=== PATIENT | female | born 1970 | race Caucasian/White ===

== ENCOUNTER → 2024-03-22 13:58 | Outpatient (REF) | payer OTHER, SELFPAY | LOC: MRI 3T 13:58 | PROVIDERS: ATTENDING PHYSICIAN Orthopaedic Surgery Hand Surgery; FAMILY PHYSICIAN Student in an Organized Health Care Education/Training Program | DX: M25.532 Pain in left wrist (principal) | CPT/HCPCS: 25246; 73115; 73222 ==

== ENCOUNTER 2024-05-14 06:42 | Day surgery (SDC) | payer OTHER, SELFPAY ==
[2024-04-18 13:03] VITALS: BMI 24.6
[2024-05-14] VITALS (9 sets, daily range): BP systolic 95–107; BP diastolic 58–73; BMI 24.6
[2024-05-14] MEDS: CELEBREX 200 MG PO (07:22)
[2024-05-14] MEDS: TYLENOL 1000 MG PO (07:22)
[2024-05-14] MEDS: NORMOSOL-R 1000 IV (07:22)
--- NOTE | 2024-05-14 11:41 | PTCARENOTE ---
1140 Patient transferred to [facility] with Ameena ALEJANDRO. VSS/afebrile. Phase 2 to continue in SDS
== END 2024-05-14 12:11 | disposition home or self-care (01) ==
LOC: SDS 06:42
PROVIDERS: ATTENDING PHYSICIAN Orthopaedic Surgery Hand Surgery; FAMILY PHYSICIAN Family Medicine
DX: S63.502A Unspecified sprain of left wrist, initial encounter (principal); X58.XXXA Exposure to other specified factors, initial encounter
CPT/HCPCS: 25320; 36415; 93005; C1713

== ENCOUNTER 2024-07-24 09:23 | Emergency (ER) | payer OTHER, SELFPAY ==
[2024-07-24 09:27] VITALS: BP 151/74
--- NOTE | 2024-07-24 10:22 | EDRN ---
Kamille FERRERA in room w/ pt at this time.
--- NOTE | 2024-07-24 10:42 | ED.GENMED ---
History of Present Illness
General
Chief Complaint: Breathing Problem
Source: patient
Exam Limitations: none
Time Seen by Provider: 07/24/24 10:26
History of Present Illness
History of Present Illness:
54-year-old female otherwise healthy presents with right sided sharp chest wall discomfort starting yesterday. She went to open a door and felt sharp pain that brought her to her knees. Since then she has had pain with deep breathing. She denies
cough. She denies fever. Denies leg swelling or calf pain. In May, she had a left wrist surgery. She was less active than normal after the surgery. [place] This is a hour and
40-minute ride one-way. She had the urgent care this morning and was referred here for further evaluation. She had an EKG finding to suggest for PE. She had an chest x-ray at the urgent care which was negative for acute finding. I personally
visualized these images
Past History
Past History
ED Past Medical History: None
ED Past Surgical History: , Gynecological (Tubal ligation) and Other (Breast augmentation)
Social History
Tobacco: Non-smoker
Personal:
Living: with family
Employment: Employed ([employer])
Phy Exam
Physical Exam
Physical Exam:
General: Well-appearing female no respiratory distress
HEENT: Normocephalic atraumatic
Heart: Regular rate and rhythm
Lungs: Breath sounds heard in all narvaez
Abdomen is soft nontender nondistended
Extremities: No cyanosis or edema no calf tenderness
Scores
Heart Failure Risk
Heart Failure Risk Score: Not Applicable
Course
Orders/Labs/Results
Orders:
Orders
07/24/24 09:32
Electrocardiogram (*1) Urgent
Reason for Study: Shortness of Breath
07/24/24 09:33
EKG- Treatment ONCE
07/24/24 10:53
Comprehensive Metabolic Panel Urgent
D-Dimer Urgent
07/24/24 10:55
Complete Blood Count/With Diff Urgent
Troponin I Urgent
Abnormal Lab Results
07/24/24
10:53
BUN 21 H mg/dl
(7-17)
07/24/24 10:55
07/24/24 10:53
Vital Signs
Initial and Last Documented VS:
Initial Vital Signs
Temp Pulse Resp BP Pulse Ox
98.4 F 59 18 151/74 100
07/24/24 09:27 07/24/24 09:27 07/24/24 09:27 07/24/24 09:27 07/24/24 09:27
Last Documented Vital Signs
Temp Pulse Resp BP Pulse Ox
98.4 F 66 18 124/88 100
07/24/24 09:27 07/24/24 11:00 07/24/24 11:00 07/24/24 11:00 07/24/24 11:00
MDM/Problems Addressed
Differential Diagnosis Includes:
Right chest pain. Consider ACS versus PE versus pneumothorax versus musculoskeletal strain
I personally visualized x-rays of the chest at the urgent care which was negative for acute findings including pneumothorax. Patient is not hypoxic nor she tachycardic. I saw the EKG from the urgent care which showed an [id number] finding. EKG here
does not show that and she is not tachycardic here. D-dimer pending. Troponin pending.
Consider CT scan of chest if D-dimer elevated
*Critical Care Note
Total Time (30-74mins, 75-104mins- exclusive of procedures): Not Applicable
Update Note
Update Note:
Troponin undetectable. D-dimer undetectable. I reviewed the x-ray from the urgent care earlier this morning which was negative. Your vital signs and remained stable. This is reproducible chest discomfort. Suspect chest wall strain. Unlikely to
be PE given low risk factors and negative D-dimer. Held off on CT imaging for now. EKG was normal here. Recommended anti-inflammatories. Stable for discharge
ED Attending Note
-
Portions of this chart may have been created with voice recognition software.� Occasional wrong word or��sound alike� substitutions may have occurred due to the inherent limitations of voice recognition software.
Discharge Plan
Departure
Patient Disposition: Home (Routine Discharge)
Date of Disposition: 07/24/24
Time of Disposition: 11:48
Patient with high blood pressure during this ER visit?: No
Discharge Problem:
Chest wall pain
Instructions: Chest Pain (DC)
Prescriptions:
No Action
multivitamin Tablet
1 tab PO DAILY
ascorbic acid (vitamin C) [Vitamin C] 500 mg Tablet
500 mg PO DAILY
Elderberry 200 mg Capsule
200 mg PO DAILY
cholecalciferol (vitamin D3) [Vitamin D3] 25 mcg (1,000 unit) Tablet
25 mcg PO DAILY
Referrals:
Renita Shipman MD [Family Provider] -
Activity Restrictions/Additional Instructions:
He may use ibuprofen or Tylenol for pain. Avoid heavy lifting or twisting activities. As discussed your workup is negative for blood clot or cardiac related issues. Please return here for worsening symptoms otherwise follow-up with your family
doctor
Interventions
Interventions:
*Risk Screen - Suicide Last Done: 07/24/24 10:55
*General Assessment Last Done: 07/24/24 10:55
*Neglect/Abuse Screening Last Done: 07/24/24 10:55
ED- Fall Risk Assessment Last Done: 07/24/24 10:55
*ED COVID-19 Vaccine History Last Done: 07/24/24 10:55
ED- Cardiac Assessment Last Done: 07/24/24 10:55
ED- Pulmonary Assessment Last Done: 07/24/24 10:55
Discharge Date and Time
Print Language: GHANAIAN
[2024-07-24 10:55] VITALS: BMI 26.8
[2024-07-24 11:00] VITALS: BP 124/88
[2024-07-24 11:07] LABS: % Basophils 0.4 % (0-2); % Eosinophils 1.3 % (0-6); % Immature Granulocytes 0.2 % (0-0.5); % Monocytes 7.8 % (1.7-9.3); % Neutrophils 56.3 % (42.2-75.2); Absolute Eosinophils 0.1 10^3/uL (0-0.7); Absolute Lymphocytes 1.9 10^3/uL (1.2-3.4); Absolute Monocytes 0.4 10^3/uL (0.1-0.6); Absolute Neutrophils 3.1 10^3/uL (1.4-6.5); Hematocrit 39.8 % (37.0-47.0); Hemoglobin 13.8 g/dL (12.0-16.0); Mean Corp Hgb Conc. 34.7 g/dL (33.0-37.0); Mean Corpuscular Hgb 29.9 pg (27.0-31.0); Mean Corpuscular Volume 86.3 fL (81.0-99.0); Nucleated Red Blood Cells % 0 %; Platelet Count 223 10^3/uL (130-400); Red Blood Cell Count 4.61 10^6/uL (4.20-5.40); White Blood Cell Count 5.5 10^3/uL (4.8-10.8)
[2024-07-24 11:17] LABS: ALT (SGPT) 21 U/L (0-35); AST (SGOT) 26 U/L (14-36); Albumin 4.7 g/dl (3.5-5.0); Alkaline Phosphatase 73 U/L (38-126); Blood Urea Nitrogen 21 mg/dl (7-17); Calcium 10.1 mg/dl (8.4-10.2); Carbon Dioxide 28 mmol/L (22-30); Chloride 102 mmol/L (98-107); Estimated Creatinine Clearance 74 ml/min; Glucose 97 mg/dl (70-99); Potassium 4.4 mmol/L (3.5-5.1); Sodium 141 mmol/L (135-145); Total Bilirubin 0.4 mg/dl (0.2-1.3); Total Protein 7.2 g/dl (6.3-8.2); eGFR > 60.00
[2024-07-24 11:28] LABS: Troponin I < 0.012 ng/ml
[2024-07-24 11:41] LABS: D-Dimer < 0.27 ug/mlFEU (0.00-0.50)
[2024-07-24 12:40] VITALS: BP 117/76
[2024-07-24 12:54] VITALS: BP 117/76
== END 2024-07-24 12:40 | disposition home or self-care (01) ==
LOC: EMR 09:23
PROVIDERS: Physician Assistant; EMERGENCY PHYSICIAN Emergency Medicine; FAMILY PHYSICIAN Family Medicine
DX: R07.89 Other chest pain (principal)
CPT/HCPCS: 99284; 80053; 84484; 85025; 85379; 93005

== ENCOUNTER 2024-07-31 18:10 | Outpatient (RCR) | payer OTHER, SELFPAY | END 2024-07-31 23:59 | disposition home or self-care (01) | LOC: ROT 18:10 | PROVIDERS: ATTENDING PHYSICIAN Orthopaedic Surgery Hand Surgery; FAMILY PHYSICIAN Family Medicine | DX: M25.532 Pain in left wrist (principal); Z73.6 Limitation of activities due to disability | CPT/HCPCS: 97022; 97110; 97140; 97166; 97535 ==

== ENCOUNTER 2024-08-21 19:02 | Outpatient (RCR) | payer OTHER, SELFPAY | END 2024-08-21 23:59 | disposition home or self-care (01) | LOC: ROT 19:02 | PROVIDERS: ATTENDING PHYSICIAN Orthopaedic Surgery Hand Surgery; FAMILY PHYSICIAN Family Medicine | DX: M25.532 Pain in left wrist (principal); Z73.6 Limitation of activities due to disability | CPT/HCPCS: 97022; 97110; 97140 ==

== ENCOUNTER 2024-09-10 09:40 | Outpatient (RCR) | payer OTHER, SELFPAY | END 2024-09-10 23:59 | disposition home or self-care (01) | LOC: ROT 09:40 | PROVIDERS: ATTENDING PHYSICIAN Orthopaedic Surgery Hand Surgery; FAMILY PHYSICIAN Family Medicine | DX: Z47.89 Encounter for other orthopedic aftercare (principal); M25.532 Pain in left wrist; Z73.6 Limitation of activities due to disability | CPT/HCPCS: 97022; 97110 ==

== ENCOUNTER 2024-10-17 17:02 | Outpatient (RCR) | payer OTHER, SELFPAY | END 2024-10-17 23:59 | disposition home or self-care (01) | LOC: ROT 17:02 | PROVIDERS: ATTENDING PHYSICIAN Orthopaedic Surgery Hand Surgery; FAMILY PHYSICIAN Family Medicine | DX: Z47.89 Encounter for other orthopedic aftercare (principal); M25.532 Pain in left wrist; Z73.6 Limitation of activities due to disability | CPT/HCPCS: 97022; 97110 ==

== ENCOUNTER 2024-11-14 17:26 | Outpatient (RCR) | payer OTHER, SELFPAY | END 2024-11-14 23:59 | disposition home or self-care (01) | LOC: ROT 17:26 | PROVIDERS: ATTENDING PHYSICIAN Orthopaedic Surgery Hand Surgery; FAMILY PHYSICIAN Family Medicine | DX: Z47.89 Encounter for other orthopedic aftercare (principal); M25.532 Pain in left wrist; Z73.6 Limitation of activities due to disability | CPT/HCPCS: 97022; 97110 ==